=== PATIENT | female | born 1970 | race Caucasian/White ===

== ENCOUNTER → 2018-07-06 | Outpatient (CLI) | payer BC ==
[~2018-07-06] MED LIST: EPI EZ PEN0.5 MG/ML IM; EPI EZ PEN1 MG/ML IM; NITROFUR PO; PREDNISONE20 MG PO
== END ==
LOC: MC.RAD 13:25
DX: Z12.31 Encounter for screening mammogram for malignant neoplasm of breast (principal)

== ENCOUNTER 2020-06-04 00:04 | Emergency (ER) | payer BC ==
[~2020-06-04] VITALS: Ht 157.5 cm; Wt 75.0 kg
[2020-06-04 01:50] VITALS: TEMP 97.5
[2020-06-04 01:51] VITALS: BP 162/102; PULSE 88
== END 2020-06-04 02:00 | disposition home or self-care (01) ==
LOC: COL.ER 00:04
DX: T78.40XA Allergy, unspecified, initial encounter (principal)
CPT/HCPCS: J2405; J2920

== ENCOUNTER → 2022-04-16 | Outpatient (CLI) | payer BC ==
[~2022-04-16] MED LIST changes: +MEDROL 4MG DOSPA4 MG PO; +NORCO 325 MG-51 TAB PO; +NORVASC 5MG5 MG/TAB PO; +PEPCID 20MG TAB20 MG PO; +SINGULAIR 110 MG/TAB PO
== END ==
LOC: MC.RAD 12:54
DX: N60.11 Diffuse cystic mastopathy of right breast (principal)

== ENCOUNTER 2022-04-21 09:26 | Emergency (ER) | payer BC ==
[~2022-04-21] VITALS: Ht 157.5 cm; Wt 72.7 kg
[~2022-04-21 09:26] MED LIST changes: -MEDROL 4MG DOSPA4 MG PO; -NORCO 325 MG-51 TAB PO; -NORVASC 5MG5 MG/TAB PO; -PEPCID 20MG TAB20 MG PO; -SINGULAIR 110 MG/TAB PO
[2022-04-21 09:29] VITALS: PULSE 81; TEMP 96.4
[2022-04-21] MEDS ORDERED: NORVASC 5MG5 MG/TAB PO (09:47)
[2022-04-21] MEDS ORDERED: SINGULAIR 110 MG/TAB PO (09:47)
[2022-04-21] MEDS ORDERED: PEPCID 20MG TAB20 MG PO (09:48)
[2022-04-21 09:51] LABS: COLLECTION METHOD CLEAN CATCH
[2022-04-21 10:02] LABS: AMORPHOUS CRYSTAL Present (NOT PRESENT); MUCOUS Present (NOT PRESENT); PH 7 (5-8); SQUAMOUS EPITHELIAL 0-2 /hpf (0-10); URINE APPEARANCE Cloudy (CLEAR/HAZY); URINE BACTERIA Rare /hpf (NONE SEEN); URINE BILIRUBIN Negative (NEGATIVE); URINE BLOOD Negative (NEGATIVE); URINE COLOR Yellow (YELLOW); URINE GLUCOSE Negative (NEGATIVE); URINE KETONE Trace (NEGATIVE); URINE LEUKOCYTE ESTERASE Negative (NEGATIVE); URINE NITRATE Negative (NEGATIVE); URINE PROTEIN(semi-quant) Negative (NEGATIVE); URINE RBC 0-2 /hpf (0-2); URINE UROBILINOGEN Negative (NEGATIVE)
[2022-04-21 10:11] LABS: BASO % 0.3 % (0.0-2.0); EOS % 0.2 % (0.0-4.0); GRAN # 12.5 K/mm3 (1.4-6.5); GRAN % 87.5 % (42.2-75.2); HEMATOCRIT 39.2 % (37.0-47.0); HEMOGLOBIN 13.7 g/dl (12.5-16.0); LYMPH # 1.1 K/mm3 (1.2-3.4); MEAN CELL VOLUME 85 fl (80.0-100.0); MEAN CORPUSCULAR HEMOGLOBIN 30 pg (27-31); MEAN CORPUSCULAR HGB CONC 35 g/dl (33.0-37.0); MONO # 0.5 K/mm3 (0.1-0.6); MONO % 3.4 % (1.7-9.3); PLATELET COUNT 422 K/mm3 (130-400); RED BLOOD COUNT 4.62 M/mm3 (4.10-5.30); REDCELL DISTRIBUTION WIDTH-CV 13.2 % (11.5-14.5)
[2022-04-21 10:25] LABS: ALBUMIN 4.2 gm/dL (3.5-5.0); BILIRUBIN,TOTAL 0.6 mg/dL (0.2-1.2); C-REACTIVE PROTEIN 0.13 mg/dL (0.00-0.50); CALCIUM 9.8 mg/dL (8.4-10.2); CREATININE, serum 0.69 mg/dL (0.57-1.11); TOTAL PROTEIN 7.2 gm/dL (6.2-8.1)
[2022-04-21] MEDS ORDERED: NORCO 325 MG-51 TAB PO (12:30)
[2022-04-21] MEDS ORDERED: MEDROL 4MG DOSPA4 MG PO (12:30)
[2022-04-21 12:39] VITALS: BP 113/67
== END 2022-04-21 12:41 | disposition home or self-care (01) ==
LOC: COL.ER 09:26
PROVIDERS: Family Medicine
DX: R10.9 Unspecified abdominal pain (principal); M46.1 Sacroiliitis, not elsewhere classified
CPT/HCPCS: J1885; J2270; J2405; J7120; Q9967

== ENCOUNTER → 2022-05-12 | Outpatient (CLI) | payer BC ==
[~2022-05-12] VITALS: Ht 157.5 cm; Wt 70.9 kg
[~2022-05-12] MED LIST changes: +MEDROL 4MG DOSPA4 MG PO; +NEURONTIN300 MG/CAP PO; +NORCO 325 MG-51 TAB PO; +NORVASC 5MG5 MG/TAB PO; +PEPCID 20MG TAB20 MG PO; +SINGULAIR 110 MG/TAB PO
[2022-05-12 12:49] VITALS: BP 155/92; PULSE 88; TEMP 98.4
[2022-05-12 14:45] VITALS: BP 143/82; PULSE 79
== END ==
LOC: COL.RAD 12:16
DX: M48.062 Spinal stenosis, lumbar region with neurogenic claudication (principal)
CPT/HCPCS: J3301

== ENCOUNTER 2022-05-15 09:37 | Outpatient (RCR) | payer BC | END 2022-05-17 | disposition home or self-care (01) | LOC: MKS.ESL.PT | DX: M48.062 Spinal stenosis, lumbar region with neurogenic claudication (principal) | CPT/HCPCS: G0283-GP ==

== ENCOUNTER → 2022-05-21 | Outpatient (CLI) | payer BC | LOC: COL.RAD 08:29 | DX: R93.7 Abnormal findings on diagnostic imaging of other parts of musculoskeletal system (principal) | CPT/HCPCS: A9503 ==

== ENCOUNTER 2022-06-01 08:30 | Outpatient (RCR) | payer BC ==
[2022-06-24] MEDS ORDERED: PEPCID 20MG TAB20 MG PO (13:15)
[2022-06-24] MEDS ORDERED: CLARITIN 1010 MG/TAB PO (13:15)
== END 2022-06-17 | disposition home or self-care (01) ==
LOC: MKS.ESL.PT
DX: M48.062 Spinal stenosis, lumbar region with neurogenic claudication (principal)

== ENCOUNTER → 2022-06-11 | Outpatient (CLI) | payer BC ==
[~2022-06-11] MED LIST changes: +CLARITIN 1010 MG/TAB PO
== END ==
LOC: COL.RAD 14:19
DX: E05.20 Thyrotoxicosis with toxic multinodular goiter without thyrotoxic crisis or storm (principal); R93.7 Abnormal findings on diagnostic imaging of other parts of musculoskeletal system
CPT/HCPCS: Q9967

== ENCOUNTER → 2022-06-29 | Outpatient (CLI) | payer BC ==
[~2022-06-29] VITALS: Ht 157.5 cm; Wt 74.0 kg
[2022-06-29 12:31] VITALS: BP 155/90; PULSE 80; TEMP 97.8
[2022-06-29 13:10] VITALS: BP 164/93; PULSE 83
== END ==
LOC: COL.RAD 12:00
DX: E04.1 Nontoxic single thyroid nodule (principal)